=== PATIENT | male | born 1995 | race Two or more races ===

== ENCOUNTER 2020-05-02 21:10 | Emergency (ER) | payer SELFPAY ==
[~2020-05-02] VITALS: Ht 188 cm; Wt 66.2 kg
[2020-05-02] MEDS ORDERED: TETANUS, DIPHTHERIA, PERTUSSIS VAC/PF 0.5ML (>7YR OLD) IM ONE (22:30)
[2020-05-02 23:13] LABS: BASOPHILS % 0.6 % (0.0-2.0); HEMATOCRIT. 40.7 % (42.0-52.0); HEMOGLOBIN. 13.8 g/dL (14.0-18.0); LYMPHOCYTES % 14.7 % (20.0-50.0); MEAN CORPUSCULAR HEMOGLOBIN 33.2 pg (28.0-32.0); MEAN CORPUSCULAR VOLUME 97.7 fL (80.0-94.0); MEAN PLATELET VOLUME 6.8 fl (7.4-10.4); MONOCYTES % 14.3 % (2.0-8.0); NEUTROPHILS % 69.4 % (40.0-76.0); PLATELET 178 x1000/uL (130-400); RED BLOOD CELL COUNT 4.16 mill/uL (4.7-6.1); RED CELL DISTRIBUTION WIDTH 11.8 % (11.6-14.6)
[2020-05-02 23:17] LABS: CHLORIDE 94 mEq/L (98-107)
[2020-05-02 23:30] VITALS: BP 130/70
== END 2020-05-03 01:12 | disposition home or self-care (01) ==
LOC: ER 21:10
DX: R94.31 Abnormal electrocardiogram [ECG] [EKG] (principal)
CPT/HCPCS: 36415; 80053; 84484; 85025; 93005; 99284